=== PATIENT | male | born 1970 | race Caucasian/White ===

== ENCOUNTER 2016-09-03 11:17 | Emergency (ER) | payer OTHER ==
[~2016-09-03 11:17] MED LIST: ALEVE220 M1 PO; ASPIR 8181 MG PO; B PLEX PO; CELEXA20 MG PO; FORMULA E400 UNIT PO; GLUCOSAMINE & C1 CAP PO; HYDROXYZINE HCL25 MG PO; IBUPROFEN800 MG PO; LAMICTAL200 M1 PO; LAMICTAL25 MG PO; LASIX20 MG PO; LASIX40 MG PO; LEVAQUIN500 MG PO; LOPRESSOR25 MG/TA2 PO; METOPROLOL TART25 MG PO; MILK OF MA400 MG/5 M PO; MOTRIN200 MG/TAB PO; MOTRIN600 MG PO; MULTI VITAMIN1 EAC1 PO; NORCO 5-325 TA1 EACH PO; OMEPRAZOLE20 MG PO; OXCARBAZEPINE150 MG PO; OXYCODONE/APAP PO; PERCOCET 5/3251 TAB PO; TOPROL XL50 M1 PO; TYLENOL500 MG PO; ULTRAM50 MG PO; VITAMIN D 22000 UNIT PO; VITAMIN D1000 UNI1 PO
[2016-09-03] MEDS ORDERED: ULTRAM50 M1 PO (11:38)
[2016-09-03] MEDS ORDERED: NAPROXEN375 M1 PO (11:39)
[2016-09-03] MEDS ORDERED: NORCO 5-325 TA1 EACH PO (12:28)
== END 2016-09-03 12:58 ==
LOC: EDMED 11:17
DX: M54.5 Low back pain (principal); M25.552 Pain in left hip; M25.551 Pain in right hip; G89.29 Other chronic pain; I10 Essential (primary) hypertension; Z91.041 Radiographic dye allergy status; F17.290 Nicotine dependence, other tobacco product, uncomplicated; Z79.899 Other long term (current) drug therapy
CPT/HCPCS: J1885; J2270